=== PATIENT | female | born 2000 | race Caucasian/White ===

== ENCOUNTER 2024-06-02 19:00 | Inpatient (IN) | payer BC ==
[~2024-06-02 19:00] MED LIST: Bupivacaine/Epinephrine 0.25% 30 ML VIAL ONE; ePHEDrine Sulfate 50 MG/10 ML VIAL ONE
[2024-06-02] MEDS ORDERED: Ondansetron PF 4 MG/2 ML Vial IVP PRN (20:00)
[2024-06-02] MEDS ORDERED: HYDROcodone/Acetaminophen 5/325 mg Tablet PO PRN ×2 (20:00)
[2024-06-02] MEDS ORDERED: Misoprostol 200 MCG TAB PR PRN (20:00)
[2024-06-02] MEDS ORDERED: Methylergonovine 0.2 MG/ML VIAL IM PRN (20:00)
[2024-06-02] MEDS ORDERED: Oxytocin 30 units/NS 500 ML 500 ML IV SCH (20:00)
[2024-06-02] MEDS ORDERED: Lidocaine 1% (PF) 30 ML VIAL SC PRN (20:00)
[2024-06-02] MEDS ORDERED: hydrALAZINE 20 MG/ML VIAL SLOW IVP PRN (20:00)
[2024-06-02] MEDS ORDERED: Tranexamic Acid 1,000 MG/10 ML VIAL IVP PRN (20:00)
[2024-06-02] MEDS ORDERED: fentaNYL 50 mcg/mL 1 mL Vial SLOW IVP PRN (20:00)
[2024-06-02] MEDS ORDERED: Promethazine HCl 25 MG/ML VIAL IM PRN (20:00)
[2024-06-02 20:44] VITALS: BMI 24.0
[2024-06-02] MEDS ORDERED: Misoprostol 100 MCG TAB VAG SCH (21:00)
[2024-06-02] MEDS: Lactated Ringer's 1,000 ML IV SCH (21:00)
[2024-06-02] MEDS: Oxytocin 30 units/NS 500 ML 500 ML IV SCH (21:20)
[2024-06-02 21:23] LABS: Hematocrit 35.2 % (34.9-44.5); Hemoglobin 12.2 g/dL (12.0-15.5); Mean Corpuscular HGB CONC 34.7 g/dL (32.0-36.0); Mean Corpuscular Hemoglobin 30.7 pg (27.0-33.0); Mean Corpuscular Volume 88.7 fL (81.6-98.3); Mean Platelet Volume 11.1 fL (7.4-10.4); Platelet Count 217 10x3/uL (150-450); RBC Distribution Width 12.7 % (11.5-14.5); Red Blood Cell (RBC) Count 3.97 10x6/uL (3.90-5.03); White Blood Cell (WBC) Count 11.3 10x3/uL (3.5-10.5)
[2024-06-02 21:53] LABS: HBsAg Index 0.19 S/CO (0-0.99); Hep B Surf Ag - L&D Non-Reactive S/CO (NonReactive); Syphilis Antibody Nonreactive (Nonreactive); Syphilis Antibody Index 0.02 S/CO (<1.00 Non-Reactive)
[2024-06-03] MEDS: fentaNYL/Ropivacaine Epidural 100 ML ONE (03:06)
[2024-06-03] MEDS ORDERED: ePHEDrine Sulfate 50 MG/10 ML VIAL SLOW IVP PRN (03:36)
[2024-06-03] MEDS ORDERED: diphenhydrAMINE 50 MG/ML VIAL IVP PRN (03:36)
[2024-06-03] MEDS ORDERED: Naloxone HCl 0.4 mg/ml Vial IVP PRN ×2 (03:36)
[2024-06-03] MEDS ORDERED: Acetaminophen 325 MG TAB PO PRN (03:36)
[2024-06-03] MEDS ORDERED: Lactated Ringer's 500 ML IV PRN (03:36)
[2024-06-03] MEDS ORDERED: Promethazine HCl 25 MG/ML VIAL IM PRN (03:36)
[2024-06-03] MEDS ORDERED: Ondansetron PF 4 MG/2 ML Vial IVP PRN ×2 (03:36→14:34)
[2024-06-03] MEDS ORDERED: Moisturizing Cream (Eucerin) 113 GM JAR TOP PRN (03:36)
[2024-06-03] MEDS ORDERED: Communication Order-Pharmacy FS SCH (03:45)
[2024-06-03] MEDS ORDERED: fentaNYL 2 mcg/Ropivacaine 0.2% Epidural 100 ML CADD EPIDURAL SCH (03:45)
[2024-06-03] MEDS: Ibuprofen 800 MG TAB PO PRN (14:33)
[2024-06-03] MEDS ORDERED: Methylergonovine 0.2 MG/ML VIAL IM PRN (14:34)
[2024-06-03] MEDS ORDERED: Oxytocin 30 units/NS 500 ML 500 ML IV SCH (14:34)
[2024-06-03] MEDS ORDERED: Lanolin Ointment 7 GM TUBE TOP PRN (14:34)
[2024-06-03] MEDS ORDERED: hydrALAZINE 20 MG/ML VIAL SLOW IVP PRN (14:34)
[2024-06-03] MEDS ORDERED: HYDROcodone/Acetaminophen 5/325 mg Tablet PO PRN (14:34)
[2024-06-03] MEDS ORDERED: Bisacodyl 10 MG SUPP PR PRN (14:34)
[2024-06-03] MEDS ORDERED: Misoprostol 200 MCG TAB VAG PRN (14:34)
[2024-06-03] MEDS ORDERED: Milk Of Magnesia 30 ML UDCUP PO PRN (14:34)
[2024-06-03] MEDS: Boostrix 0.5 ML (Tdap) VIAL (>/=7 yrs of age) IM ONE (14:50)
[2024-06-03] MEDS: Hepatitis B Vaccine 10 MCG/0.5 ML SYR ONE (14:50)
[2024-06-03] MEDS: Erythromycin Base 0.5% Oint 1 GM TUBE ONE (14:50)
[2024-06-03] MEDS: Phytonadione Neonatal 1 MG/0.5 ML AMP ONE (14:50)
[2024-06-03] MEDS: HYDROcodone/Acetaminophen 5/325 mg Tablet PO PRN (14:52)
[2024-06-03] MEDS: Benzocaine-Menthol 82.5 ML CAN TOP PRN (14:53)
[2024-06-03] MEDS: Ferrous Sulfate 325 MG TAB PO SCH (16:22)
[2024-06-03] MEDS: Ibuprofen 800 MG TAB PO SCH (21:35)
[2024-06-03] MEDS: Docusate 100 MG CAP PO SCH (21:36)
[2024-06-04 08:00] VITALS: BP 119/64; TEMP 97.9
[2024-06-04] MEDS: Prenatal Vitamin 1 TAB PO SCH (08:18)
== END 2024-06-04 13:05 | disposition home or self-care (01) | DRG 807 ==
LOC: CSHLD 19:54 → CSHPP 06-03 13:05
PROVIDERS: ADMIT Obstetrics & Gynecology; ATTEND Obstetrics & Gynecology
PROC: 10E0XZZ Delivery of Products of Conception, External Approach (ICD-10-PCS; principal; 2024-06-03)
PROC: 0UQMXZZ Repair Vulva, External Approach (ICD-10-PCS; 2024-06-03)
PROC: 3E0P7VZ Introduction of Hormone into Female Reproductive, Via Natural or Artificial Opening (ICD-10-PCS; 2024-06-03)
DX: O98.52 Other viral diseases complicating childbirth (principal); Z37.0 Single live birth; O70.0 First degree perineal laceration during delivery; Z3A.39 39 weeks gestation of pregnancy; B00.9 Herpesviral infection, unspecified
CPT/HCPCS: 36415; 51702; 85027; 86780; 86850; 86900; 86901; 87340; J2590; J7120

== ENCOUNTER 2024-06-12 12:00 | Emergency (ER) | payer BC ==
[2024-06-12] MEDS ORDERED: Ondansetron PF 4 MG/2 ML Vial ONE (12:33)
[2024-06-12 12:51] LABS: #Basophils 0.04 10x3/uL (0.0-0.2); #Eosinophils 0.16 10x3/uL (0.0-0.5); #Monocytes 0.41 10x3/uL (0.0-1.1); #Neutrophils 7.73 10x3/uL (1.5-8.4); %Basophils 0.4 % (0.0-2.0); %Eosinophils 1.6 % (0.0-6.0); %Lymphocytes 15.8 % (18.0-47.0); %Monocytes 4.1 % (0.0-10.0); %Neutrophils 77.6 % (40.0-75.0); Hematocrit 38.7 % (34.9-44.5); Hemoglobin 12.6 g/dL (12.0-15.5); Mean Corpuscular HGB CONC 32.6 g/dL (32.0-36.0); Mean Corpuscular Hemoglobin 29.6 pg (27.0-33.0); Mean Corpuscular Volume 90.8 fL (81.6-98.3); Mean Platelet Volume 9.2 fL (7.4-10.4); Platelet Count 426 10x3/uL (150-450); RBC Distribution Width 12.2 % (11.5-14.5); Red Blood Cell (RBC) Count 4.26 10x6/uL (3.90-5.03)
[2024-06-12 13:10] LABS: ALT (SGPT) 19 U/L (8-55); AST (SGOT) 18 U/L (5-34); Albumin 3.6 g/dL (3.5-5.0); Alkaline Phosphatase 136 U/L (40-110); Anion Gap 16 mmol/L (10-20); BUN (Urea Nitrogen) 12 mg/dL (7.0-18.7); Bilirubin, Total 0.4 mg/dL (0.2-1.2); Calc. Creatinine Clearance 0 mL/min (70-130); Calcium 10.1 mg/dL (7.8-10.44); Carbon Dioxide 22 mmol/L (22-29); Chloride 106 mmol/L (98-107); Estimated GFR 106; Globulin 3.5 g/dL (2.4-3.5); Glucose 93 mg/dL (70-105); Lipase 13 U/L (8-78); Magnesium 1.7 mg/dL (1.6-2.6); Protein, Total 7.1 g/dL (6.0-8.3); Sodium 140 mmol/L (136-145)
[2024-06-12 13:16] LABS: Troponin I Less than 0.010 ng/mL (< 0.028)
[2024-06-12 14:20] LABS: Bilirubin Neg (Negative); Blood, Urine 250 (Negative); Clarity Clear (Clear); Glucose, Urine (Dipstick) Normal (Negative); Ketone, Urine 15 mg/dL (Negative); Leukocyte 100 (Negative); Nitrite Negative (Negative); Protein, Urine (Dipstick) 15 mg/dl (Neg-Trace); Urobilinogen Normal mg/dL (Less than 2); pH, Urine 6.5 (5.0-9.0)
[2024-06-12 15:03] LABS: CAUTI Indications for Culture Dysuria,urgency,freq; Squamous Epithelial 0-3 HPF (0-3)
[2024-06-12 15:04] LABS: Bacteria/HPF 2+ HPF (None Seen)
[2024-06-12 15:05] LABS: Urine Culture Reflex Yes Yes
== END 2024-06-12 15:29 | disposition home or self-care (01) ==
LOC: CSHERS 12:00
DX: O86.20 Urinary tract infection following delivery, unspecified (principal); N39.0 Urinary tract infection, site not specified; R07.89 Other chest pain; R11.2 Nausea with vomiting, unspecified
CPT/HCPCS: 71045; 80053; 81001; 83690; 83735; 84484; 85025; 87086; 93005; 96361; 96374; J2405